=== PATIENT | male | born 1985 | race American Indian/Alaskan Native ===

== ENCOUNTER 2016-11-27 17:31 | Emergency (ER) | payer SELFPAY ==
[2016-11-27] MEDS ORDERED: Sodium Chloride 0.9% 2.5 ML Syringe FLUSH PRN (18:06)
[2016-11-27] MEDS ORDERED: Sodium Chloride 0.9% 10 ML Syringe FLUSH PRN (18:06)
[2016-11-27] MEDS ORDERED: Diphtheria,Pertussis(Acell),Tetanus Vaccine 0.5 ML Syringe IM ONE (18:06)
--- NOTE | 2016-11-27 18:18 | EDM.PDOC ---
ED HPI GENERAL MEDICAL PROBLEM - General Chief Complaint: Skin Complaint Stated Complaint: RIGHT LEG IS RED Time Seen by Provider: 11/27/16 18:08 Source of Information: Reports: Patient History Limitations: Reports: No Limitations - History of Present Illness INITIAL COMMENTS - FREE TEXT/NARRATIVE: HISTORY AND PHYSICAL: History of present illness: Patient is a 21-year-old male presents to the emergency room today with complaints of a infection to his right lower extremity. A shunt reports that approximately 5 days ago he noticed a localized area of redness to the right hart, approximate size of a $0.50 piece has progressively larger and larger. This morning he woke up noting the redness having golfed the entire right anterior aspect of hart with blistering around the ankle. Believes he may have had a fever with chills last night. Been ambulatory on it. States it feels better when he is able to rest and elevate the extremity. 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 He denies any recent exposure to those chemicals or any other allergens. Does have a moderate case of athlete's foot noted to the right , which she is using [id number] powder and creams. Patient denies any chest pain, shortness of breath, abdominal pain, nausea or vomiting. Denies any calf pain or tenderness with palpation or weight bearing. Review of systems: As per history of present illness and below otherwise all systems reviewed and negative. Past medical history: As per history of present illness and as reviewed below otherwise noncontributory. Surgical history: As per history of present illness and as reviewed below otherwise noncontributory. Social history: No reported history of drug or alcohol abuse. Family history: As per history of present illness and as reviewed below otherwise noncontributory. Physical exam: Gen.: Nontoxic appearing 21-year-old male. Well-developed, well-nourished. HEENT: Atraumatic, normocephalic, pupils reactive, negative for conjunctival pallor or scleral icterus, mucous membranes moist, throat clear, neck supple, nontender, trachea midline. Lungs: Clear to auscultation, breath sounds equal bilaterally, chest nontender. Heart: S1S2, regular rate and rhythm. No overt murmurs Abdomen: Soft, nondistended, nontender. Negative for costovertebral tenderness. Pelvis: Stable nontender. Genitourinary: Deferred. Rectal: Deferred. Skin: Area of cellulitis noted to the right lower extremity. Has defined borders of the anterior hart, starting below the patella and ending above the ankle. Is non-circumferential. Blistering noted to the medial and lateral ankle. Margins were outlined with a darker. Skin is warm to touch. Patient does have a case of athlete's foot which is odorous and covered an [id number] antifungal cream. Extremities: Atraumatic, negative for cords or calf pain. Neurovascular unremarkable. Neuro: Awake, alert, oriented. Cranial nerves II through XII unremarkable. Cerebellum unremarkable. Motor and sensory unremarkable throughout. Exam nonfocal. Diagnostics: CBC, CMP, lactic acid, ultrasound, x-ray of tib-fib Therapeutics: Vancomycin 1 g Impression: Cellulitis Vital signs are reviewed by me. Discussed admission with patient. 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 She declined admission regardless of risk versus benefits which were thoroughly explained. Educated patient on signs and symptoms to monitor over the next 24-48 hours. Patient voices understanding and assumes liabilty, will sign out AMA. A prescription for clindamycin and Bactrim DS were provided to patient. Our transverse of the cellulitis were lined with surgical pen. Patient states he will return if swelling redness exceeds those margins. Plan: 1. Take the antibiotics as prescribed. 2. Rest, ice, elevate the affected extremity as much as possible. 3. Follow-up with your primary care provider in the next 1-2 days. Return to the ED as needed as discussed. Definitive disposition and diagnosis as appropriate pending reevaluation and review of above. Onset: Other (5 days) Duration: Day(s): (5 days) Location: Reports: Lower Extremity, Right Right Leg Pain Score (Numeric/FACES): 5 - Related Data Allergies Allergy/AdvReac Type Severity Reaction Status Date / Time No Known Allergies Allergy Verified 11/27/16 17:49 Home Meds: Home Meds . [No Known Home Meds] 11/27/16 [History] Past Medical History HEENT History: Reports: None Cardiovascular History: Reports: None Respiratory History: Reports: None Gastrointestinal History: Reports: None Genitourinary History: Reports: None Musculoskeletal History: Reports: None Neurological History: Reports: None Psychiatric History: Reports: None Endocrine/Metabolic History: Reports: None Hematologic History: Reports: None Immunologic History: Reports: AIDS Oncologic (Cancer) History: Reports: None Dermatologic History: Reports: None - Infectious Disease History Infectious Disease History: Reports: None - Past Surgical History Head Surgeries/Procedures: Reports: None Cardiovascular Surgical History: Reports: None Male Surgical History: Reports: None Social & Family History - Tobacco Use Smoking Status *Q: Never Smoker Second Hand Smoke Exposure: No - Caffeine Use Caffeine Use: Reports: None - Recreational Drug Use Recreational Drug Use: No ED ROS GENERAL - Review of Systems Review Of Systems: ROS reveals no pertinent complaints other than HPI. ED EXAM, SKIN/RASH Exam: See Below (See dictation) Course - Vital Signs Last Recorded V/S: Last Vital Signs Temp 37.2 C 11/27/16 17:47 Pulse 122 H 11/27/16 20:29 Resp 20 11/27/16 20:29 BP 144/81 H 11/27/16 20:29 Pulse Ox 95 11/27/16 20:29 - Orders/Labs/Meds Orders: Active Orders 24 hr Category Date Time Status Vaccines to be Administered [RC] PER UNIT ROUTINE Care 11/27/16 18:08 Active Tibia Fibula Rt [CR] Stat Exams 11/27/16 18:06 Taken Venous Doppler Lwr Ext Rt [US] Stat Exams 11/27/16 18:06 Taken Sodium Chloride 0.9% [Normal Saline] 1,000 ml Med 11/27/16 18:20 Active IV STAT Sodium Chloride 0.9% [Saline Flush] Med 11/27/16 18:06 Active 10 ml FLUSH ASDIRECTED PRN Sodium Chloride 0.9% [Saline Flush] Med 11/27/16 18:06 Active 2.5 ml FLUSH ASDIRECTED PRN Saline Lock Insert [OM.PC] Stat Oth 11/27/16 18:05 Ordered Medication Orders Sodium Chloride (Normal Saline) 1,000 mls @ 150 mls/hr IV STAT ONE Stop: 11/28/16 00:59 Last Admin: 11/27/16 18:40 Dose: 150 mls/hr Sodium Chloride (Saline Flush) 10 ml FLUSH ASDIRECTED PRN PRN Reason: Keep Vein Open Last Admin: 11/27/16 18:46 Dose: 10 ml Sodium Chloride (Saline Flush) 2.5 ml FLUSH ASDIRECTED PRN PRN Reason: Keep Vein Open Last Admin: 11/27/16 18:47 Dose: 2.5 ml Labs: Laboratory Tests 11/27/16 11/27/16 11/27/16 Range/Units 18:45 18:45 18:45 WBC 16.52 H (4.0-11.0) K/uL RBC 5.24 (4.50-5.90) M/uL Hgb 15.3 (13.0-17.0) g/dL Hct 44.4 (38.0-50.0) % MCV 84.7 (80.0-98.0) fL MCH 29.2 (27.0-32.0) pg MCHC 34.5 (31.0-37.0) g/dL RDW Std Deviation 42.1 (28.0-62.0) fl RDW Coeff of Caden 14 (11.0-15.0) % Plt Count 196 (150-400) K/uL MPV 11.70 (7.40-12.00) fL Neut % (Auto) 91.5 H (48.0-80.0) % Lymph % (Auto) 3.1 L (16.0-40.0) % Mckinley % (Auto) 4.0 (0.0-15.0) % Eos % (Auto) 1.3 (0.0-7.0) % Baso % (Auto) 0.1 (0.0-1.5) % Neut # (Auto) 15.1 H (1.4-5.7) K/uL Lymph # (Auto) 0.5 L (0.6-2.4) K/uL Mckinley # (Auto) 0.7 (0.0-0.8) K/uL Eos # (Auto) 0.2 (0.0-0.7) K/uL Baso # (Auto) 0.0 (0.0-0.1) K/uL Nucleated RBC % 0.0 /100WBC Nucleated RBCs # 0 K/uL Lactate 1.0 (0.20-2.00) mmol/L Sodium 138 (136-146) mmol/L Potassium 3.8 (3.5-5.1) mmol/L Chloride 106 (98-110) mmol/L Carbon Dioxide 19 L (21-31) mmol/L BUN 18 (6.0-23.0) mg/dL Creatinine 1.5 (0.6-1.5) mg/dL Est Cr Clr Drug Dosing 79.76 mL/min Estimated GFR (MDRD) 55.3 ml/min Glucose 109 (60-110) mg/dL Calcium 9.7 (8.8-10.8) mg/dL Total Bilirubin 1.1 (0.1-1.5) mg/dL AST 35 (5-40) IU/L ALT 57 H (8-54) IU/L Alkaline Phosphatase 94 (40-150) Total Protein 7.9 (6.0-8.0) g/dL Albumin 4.3 (3.5-5.0) g/dL Globulin 3.6 H (2.0-3.5) g/dL Albumin/Globulin Ratio 1.2 L (1.3-2.8) Meds: Medications Generic Name Dose Route Start Last Admin Trade Name Freq PRN Reason Stop Dose Admin Sodium Chloride 1,000 mls @ 150 mls/hr 11/27/16 18:20 11/27/16 18:40 Normal Saline IV 11/28/16 00:59 150 mls/hr STAT ONE Administration Sodium Chloride 10 ml 11/27/16 18:06 11/27/16 18:46 Saline Flush FLUSH 10 ml ASDIRECTED PRN Administration Keep Vein Open Sodium Chloride 2.5 ml 11/27/16 18:06 11/27/16 18:47 Saline Flush FLUSH 2.5 ml ASDIRECTED PRN Administration Keep Vein Open Discontinued Medications Generic Name Dose Route Start Last Admin Trade Name Freq PRN Reason Stop Dose Admin Diphtheria/Tetanus/Acell Pertussis 0.5 ml 11/27/16 18:06 11/27/16 18:39 Adacel IM 11/27/16 18:07 0.5 ml .ONCE ONE Administration Vancomycin HCl 1 gm/ Sodium 250 mls @ 250 mls/hr 11/27/16 18:06 11/27/16 18: 40 Chloride IV 11/27/16 19:05 250 mls/hr ONETIME ONE Administration Departure - Departure Time of Disposition: 20:38 Disposition: Against Medical Advice 07 Clinical Impression: Cellulitis Qualifiers: Site of cellulitis: extremity Laterality: right - Discharge Information Referrals: PCP,None [Primary Care Provider] - Forms: ED Department Discharge Additional Instructions: The following information is given to patients seen in the emergency department who are being discharged to home. This information is to outline your options for follow-up care. We provide all patients seen in our emergency department with a follow-up referral. The need for follow-up, as well as the timing and circumstances, are variable depending upon the specifics of your emergency department visit. If you don't have a primary care physician on staff, we will provide you with a referral. We always advise you to contact your personal physician following an emergency department visit to inform them of the circumstance of the visit and for follow-up with them and/or the need for any referrals to a consulting specialist. The emergency department will also refer you to a specialist when appropriate. This referral assures that you have the opportunity for followup care with a specialist. All of these measure are taken in an effort to provide you with optimal care, which includes your followup. Under all circumstances we always encourage you to contact your private physician who remains a resource for coordinating your care. When calling for followup care, please make the office aware that this follow-up is from your recent emergency room visit. If for any reason you are refused follow-up, please contact the [facility] emergency department at and ask to speak to the emergency department charge nurse. [facility] Primary care- Internal Medicine and Family [address] [address] 1. Take the antibiotics as prescribed. 2. Rest, ice, elevate the affected extremity as often as possible. 3. Follow-up with your primary care provider in the next 1-2 days. Return to the ED as needed as discussed. - My Orders Last 24 Hours: My Active Orders 11/27/16 18:05 Saline Lock Insert [OM.PC] Stat 11/27/16 18:06 Tibia Fibula Rt [CR] Stat Venous Doppler Lwr Ext Rt [US] Stat Sodium Chloride 0.9% [Saline Flush] 10 ml FLUSH ASDIRECTED PRN Sodium Chloride 0.9% [Saline Flush] 2.5 ml FLUSH ASDIRECTED PRN 11/27/16 18:08 Vaccines to be Administered [RC] PER UNIT ROUTINE 11/27/16 18:20 Sodium Chloride 0.9% [Normal Saline] 1,000 ml IV STAT - Assessment/Plan Last 24 Hours: My Active Orders 11/27/16 18:05 Saline Lock Insert [OM.PC] Stat 11/27/16 18:06 Tibia Fibula Rt [CR] Stat Venous Doppler Lwr Ext Rt [US] Stat Sodium Chloride 0.9% [Saline Flush] 10 ml FLUSH ASDIRECTED PRN Sodium Chloride 0.9% [Saline Flush] 2.5 ml FLUSH ASDIRECTED PRN 11/27/16 18:08 Vaccines to be Administered [RC] PER UNIT ROUTINE 11/27/16 18:20 Sodium Chloride 0.9% [Normal Saline] 1,000 ml IV STAT
[2016-11-27] MEDS ORDERED: Sodium Chloride 0.9% 1,000 ML IV ONE (18:20)
[2016-11-28 01:12] VITALS: BP 141/80
--- NOTE | 2016-11-29 17:22 | CR ---
EXAM DATE: 11/27/16 PATIENT'S AGE: 31 Patient: FREDIS BURGESS Facility: [place], [place] Site . Site : 08/20/1995 Study: XRay Extremity Right tib/fib [id number]/3/2017 6:38:49 PM Ordering Physician: Doctor Alarcon Final Report: HISTORY: Cellulitis. TECHNIQUE: Two views of the right tibia and fibula. COMPARISON: No prior. FINDINGS: No acute fracture. No bony destructive change. No soft tissue gas or radiopaque foreign body. IMPRESSION: 1. No acute fracture or bony destructive change. 2. No soft tissue gas. Dictated by Mo Chiang MD @ 11/27/2016 7:05:22 PM Dictated by: Mo Chiang MD @ 11/27/2016 19:05:43 (Electronic Signature) Report Signed by Proxy. YEFRI
--- NOTE | 2016-11-29 17:23 | US ---
EXAM DATE: 11/27/16 PATIENT'S AGE: 31 Patient: FREDIS BURGESS Facility: [place], [place] Site . Site : 1985 Study: US Extremity Venous RT [id number]/3/2017 8:06:34 PM Ordering Physician: Doctor Alarcon Final Report: INDICATION: CELLULITIS RT LOWER LEG TECHNIQUE: Ultrasound venous duplex right lower extremity. COMPARISON: None. FINDINGS: The right common femoral, superficial femoral, deep femoral, popliteal, posterior tibial, and greater saphenous veins are fully compressible with normal waveforms. The contralateral left common femoral artery is fully compressible with normal waveform. No masses evident. IMPRESSION: Normal ultrasound of the right lower extremity veins. Dictated by: Garland Rose MD @ 11/27/2016 20:26:11 (Electronic Signature) Report Signed by Proxy. [email or web address]
== END 2016-11-27 20:56 | disposition left against medical advice (07) ==
LOC: MW.ED 17:31 → EDBD 17:31 → MW.ED 20:56
DX: S90.512A Abrasion, left ankle, initial encounter (principal); L03.115 Cellulitis of right lower limb; Z23 Encounter for immunization; X12.XXXA Contact with other hot fluids, initial encounter
CPT/HCPCS: 36415; 73590; 80053; 83605; 85025; 90471; 90715; 93971; 96361; 96365; 99284; J3370; J7040; J7050; 99283

== ENCOUNTER 2016-11-29 22:13 | Inpatient (IN) | payer SELFPAY ==
[2016-11-29] MEDS ORDERED: cefTRIAXone 1 GM in Premix Bag 1 BAG IV ONE (22:31)
--- NOTE | 2016-11-29 22:48 | EDM.PDOC ---
ED HPI GENERAL MEDICAL PROBLEM - General Chief Complaint: Lower Extremity Injury/Pain Stated Complaint: RIGHT LEG SWOLLEN BATRICAL INFECTION Time Seen by Provider: 11/29/16 22:48 - History of Present Illness INITIAL COMMENTS - FREE TEXT/NARRATIVE: HISTORY AND PHYSICAL: History of present illness: Patient 31-year-old male presents with a concern of redness pain and swelling to his right leg this has worsened over the last several days and he was seen in the emergency department yesterday and signed out AGAINST MEDICAL ADVICE he' s had increased pain redness and swelling since he does not recall any specific trauma but states last Monday he was crawling around and seems to develop since that Review of systems: As per history of present illness and below otherwise all systems reviewed and negative. Past medical history: As per history of present illness and as reviewed below otherwise noncontributory. Surgical history: As per history of present illness and as reviewed below otherwise noncontributory. Social history: No reported history of drug or alcohol abuse. Family history: As per history of present illness and as reviewed below otherwise noncontributory. Physical exam: HEENT: Atraumatic, normocephalic, pupils reactive, negative for conjunctival pallor or scleral icterus, mucous membranes moist, throat clear, neck supple, nontender, trachea midline. Lungs: Clear to auscultation, breath sounds equal bilaterally, chest nontender. Heart: S1S2, regular, negative for clicks, rubs, or JVD. Abdomen: Soft, nondistended, nontender. Negative for masses or hepatosplenomegaly. Negative for costovertebral tenderness. Pelvis: Stable nontender. Genitourinary: Deferred. Rectal: Deferred. Extremities: Patient has large erythema with warmth tenderness and blistering noted to his right leg CMS neurovascular exams unremarkable Neuro: Awake, alert, oriented. Cranial nerves II through XII unremarkable. Cerebellum unremarkable. Motor and sensory unremarkable throughout. Exam nonfocal. Diagnostics: CBC CMP lactic acid blood culture 2 x-ray tib-fib Therapeutics: Normal saline at 125 mL an hour vancomycin 1 g IV Impression: #1 cellulitis right leg Definitive disposition and diagnosis as appropriate pending reevaluation and review of above. Right Lower Leg Pain Score (Numeric/FACES): 5 - Related Data Allergies Allergy/AdvReac Type Severity Reaction Status Date / Time No Known Allergies Allergy Verified 11/29/16 22:25 Home Meds: Home Meds Amoxicillin/Potassium Clav [Augmentin 500-125 Tablet] 0 mg PO DAILY 11/29/16 [ History] Clindamycin HCl 0 mg PO DAILY 11/29/16 [History] Past Medical History - Past Health History Medical/Surgical History: Denies Medical/Surgical History HEENT History: Reports: None Cardiovascular History: Reports: None Respiratory History: Reports: None Gastrointestinal History: Reports: None Genitourinary History: Reports: None Musculoskeletal History: Reports: None Neurological History: Reports: None Psychiatric History: Reports: None Endocrine/Metabolic History: Reports: None Hematologic History: Reports: None Immunologic History: Reports: AIDS Oncologic (Cancer) History: Reports: None Dermatologic History: Reports: None - Infectious Disease History Infectious Disease History: Reports: None - Past Surgical History Head Surgeries/Procedures: Reports: None Cardiovascular Surgical History: Reports: None Male Surgical History: Reports: None Social & Family History - Family History Family Medical History: Noncontributory - Tobacco Use Smoking Status *Q: Never Smoker Second Hand Smoke Exposure: No - Caffeine Use Caffeine Use: Reports: None - Recreational Drug Use Recreational Drug Use: No Review of Systems - Review of Systems Review Of Systems: ROS reveals no pertinent complaints other than HPI. ED EXAM, GENERAL - Physical Exam Exam: See Below (See dictation) Course - Vital Signs Last Recorded V/S: Last Vital Signs Temp 36.6 C 11/29/16 22:27 Pulse 116 H 11/29/16 22:27 Resp 18 11/29/16 22:27 BP 146/93 H 11/29/16 22:27 Pulse Ox 96 11/29/16 22:27 - Orders/Labs/Meds Orders: Active Orders 24 hr Category Date Time Status Tibia Fibula Rt [CR] Stat Exams 11/29/16 22:33 Ordered CBC WITH AUTO DIFF [HEME] Stat Lab 11/29/16 22:31 Ordered COMPREHENSIVE METABOLIC PN,CMP [CHEM] Stat Lab 11/29/16 22:31 Ordered CULTURE BLOOD [BC] Stat Lab 11/29/16 22:31 Ordered CULTURE BLOOD [BC] Stat Lab 11/29/16 22:31 Ordered LACTIC ACID,WHOLE BLOOD [BG] Stat Lab 11/29/16 22:31 Ordered Sodium Chloride 0.9% [Normal Saline] 1,000 ml Med 11/29/16 22:45 Active IV ASDIRECTED cefTRIAXone [Rocephin in Dextrose,Iso-Osm 1 GM/50 ML] 1 Med 11/29/16 22:31 Active gm Premix Bag 1 bag IV ONETIME Blood Culture x2 Reflex Set [OM.PC] Stat Oth 11/29/16 22:31 Ordered Medication Orders Ceftriaxone Sodium/Dextrose 1 (gm/ Premix) 50 mls @ 100 mls/hr IV ONETIME ONE Stop: 11/29/16 23:00 Sodium Chloride (Normal Saline) 1,000 mls @ 125 mls/hr IV ASDIRECTED [facility] Meds: Medications Generic Name Dose Route Start Last Admin Trade Name Freq PRN Reason Stop Dose Admin Ceftriaxone Sodium/Dextrose 1 50 mls @ 100 mls/hr 11/29/16 22:31 gm/ Premix IV 11/29/16 23:00 ONETIME ONE Sodium Chloride 1,000 mls @ 125 mls/hr 11/29/16 22:45 Normal Saline IV ASDIRECTED BORDY Departure - Departure Time of Disposition: 22:47 Disposition: Admitted As Inpatient 68 Condition: Good Clinical Impression: Cellulitis - Discharge Information Referrals: PCP,None [Primary Care Provider] - - My Orders Last 24 Hours: My Active Orders 11/29/16 22:31 CBC WITH AUTO DIFF [HEME] Stat COMPREHENSIVE METABOLIC PN,CMP [CHEM] Stat CULTURE BLOOD [BC] Stat CULTURE BLOOD [BC] Stat LACTIC ACID,WHOLE BLOOD [BG] Stat cefTRIAXone [Rocephin in Dextrose,Iso-Osm 1 GM/50 ML] 1 gm Premix Bag 1 bag IV ONETIME Blood Culture x2 Reflex Set [OM.PC] Stat 11/29/16 22:33 Tibia Fibula Rt [CR] Stat 11/29/16 22:45 Sodium Chloride 0.9% [Normal Saline] 1,000 ml IV ASDIRECTED - Assessment/Plan Last 24 Hours: My Active Orders 11/29/16 22:31 CBC WITH AUTO DIFF [HEME] Stat COMPREHENSIVE METABOLIC PN,CMP [CHEM] Stat CULTURE BLOOD [BC] Stat CULTURE BLOOD [BC] Stat LACTIC ACID,WHOLE BLOOD [BG] Stat cefTRIAXone [Rocephin in Dextrose,Iso-Osm 1 GM/50 ML] 1 gm Premix Bag 1 bag IV ONETIME Blood Culture x2 Reflex Set [OM.PC] Stat 11/29/16 22:33 Tibia Fibula Rt [CR] Stat 11/29/16 22:45 Sodium Chloride 0.9% [Normal Saline] 1,000 ml IV ASDIRECTED
[2016-11-29] MEDS: Sodium Chloride 0.9% 1,000 ML IV SCH (22:49)
--- NOTE | 2016-11-30 00:06 | PCM.HP ---
H&P History of Present Illness - General Date of Service: 11/29/16 - History of Present Illness Initial Comments - Free Text/Narative: 31 yo male who presents with right lower leg erythema and edema. He reports developing a rash two days ago on his right hart which he thought was due to rubbing against velcro on his work cloths. He was seen in the ED and presribed augmentin and clindamycin. He returns to ED today reporting the erythema and edema of his legs have not changed. He does report some pain on the surface of the skin. There have been blisters that have developed on the edge of the rash. Right Lower Leg Pain Score (Numeric/FACES): 2 - Related Data Allergies/Adverse Reactions: Allergies Allergy/AdvReac Type Severity Reaction Status Date / Time No Known Allergies Allergy Verified 11/29/16 22:25 Home Medications: Home Meds Amoxicillin/Potassium Clav [Augmentin 500-125 Tablet] 0 mg PO DAILY 11/29/16 [ History] Clindamycin HCl 0 mg PO DAILY 11/29/16 [History] Past Medical History - Past Health History Medical/Surgical History: Denies Medical/Surgical History HEENT History: Reports: None Cardiovascular History: Reports: None Respiratory History: Reports: None Gastrointestinal History: Reports: None Genitourinary History: Reports: None Musculoskeletal History: Reports: None Neurological History: Reports: None Psychiatric History: Reports: None Endocrine/Metabolic History: Reports: None Hematologic History: Reports: None Immunologic History: Reports: AIDS Oncologic (Cancer) History: Reports: None Dermatologic History: Reports: None - Infectious Disease History Infectious Disease History: Reports: None - Past Surgical History Head Surgeries/Procedures: Reports: None Cardiovascular Surgical History: Reports: None Male Surgical History: Reports: None Social & Family History - Family History Family Medical History: Noncontributory - Tobacco Use Smoking Status *Q: Never Smoker Second Hand Smoke Exposure: No - Caffeine Use Caffeine Use: Reports: None - Recreational Drug Use Recreational Drug Use: No H&P Review of Systems - Review of Systems: Review Of Systems: ROS reveals no pertinent complaints other than HPI. Exam - Exam Exam: See Below - Vital Signs Vital Signs: Last Vital Signs Temp 36.6 C 11/29/16 22:27 Pulse 103 H 11/29/16 23:38 Resp 17 11/29/16 23:38 BP 134/70 11/29/16 23:38 Pulse Ox 97 11/29/16 23:38 Weight: 100.9 kg - Exam General: Alert, Oriented, 4 Lungs: Clear to Auscultation, Normal Respiratory Effort Cardiovascular: Regular Rate, Regular Rhythm GI/Abdominal Exam: Normal Bowel Sounds, Non-Tender, No Organomegaly, No Distention Extremities: Normal Range of Motion, Other (large erythematous rash of anterior lower leg extending below knee to above ankle, will several 2-3cm blisters, full range of motion of ankle and knee). No: Joint Swelling - Patient Data Result Diagrams: 11/30/16 04:42 11/30/16 04:42 *Q Meaningful Use (ADM) - VTE *Q VTE Criteria *Q: - Stroke *Q Stroke Criteria *Q: - AMI *Q AMI Criteria *Q: Problem List Initiated/Reviewed/Updated: Yes Orders Last 24hrs: Medication Orders Sodium Chloride (Normal Saline) 1,000 mls @ 125 mls/hr IV ASDIRECTED BRODY Last Admin: 11/29/16 22:49 Dose: 125 mls/hr Assessment/Plan Comment:: 31 yo male admitted for right leg cellulitis. Treating with vancomycin and zosyn
[2016-11-30] MEDS ORDERED: oxyCODONE 5 MG Tab PO PRN (00:11)
[2016-11-30] MEDS ORDERED: Morphine 2 MG/ML Syringe IVPUSH PRN (00:11)
[2016-11-30] MEDS ORDERED: Ondansetron 4 MG/2 ML SDV IVPUSH PRN (00:11)
[2016-11-30] MEDS: Piperacillin/Tazobactam 3.375 GM in Sodium Chloride 0.9% 50 ML IV SCH ×4 (00:47→18:09)
[2016-11-30] MEDS ORDERED: Flu Vaccine 2016-17(36Mos+)/PF 60 MCG/0.5 ML Syringe IM ONE (01:30)
[2016-11-30] MEDS: Vancomycin 1.5 GM in Sodium Chloride 0.9% 500 ML IV SCH ×4 (02:04→16:31)
[2016-11-30 05:32] LABS: CHLORIDE,CL 105 mmol/L (98-110); SODIUM,NA 138 mmol/L (136-146)
[2016-11-30] MEDS: Enoxaparin 40 MG/0.4 ML Syringe SUBCUT SCH (09:26)
[2016-11-30] MEDS: Acetaminophen 325 MG Tab PO PRN ×2 (09:38→16:29)
[2016-11-30] MEDS: Sodium Chloride 0.9% 1,000 ML IV SCH ×2 (11:14→21:52)
--- NOTE | 2016-11-30 11:14 | PCM.PN ---
- Review of Systems Systems Review Comment:: patient reports pain has improved, beleives edema and redness has improved - Patient Data Vitals - Most Recent: Last Vital Signs Temp 37.9 C 11/30/16 08:00 Pulse 71 11/30/16 08:00 Resp 19 11/30/16 08:00 BP 141/78 H 11/30/16 08:00 Pulse Ox 95 11/30/16 08:00 Weight - Most Recent: 100.9 kg I&O - Last 24 Hours: Intake & Output 11/29/16 11/30/16 11/30/16 22:59 06:59 14:59 Intake Total 150 Output Total 420 Balance -270 Lab Results Last 24 Hours: Laboratory Results - last 24 hr 11/30/16 11/30/16 Range/Units 04:42 04:42 WBC 16.85 H (4.0-11.0) K/uL RBC 4.59 (4.50-5.90) M/uL Hgb 13.2 (13.0-17.0) g/dL Hct 38.5 (38.0-50.0) % MCV 83.9 (80.0-98.0) fL MCH 28.8 (27.0-32.0) pg MCHC 34.3 (31.0-37.0) g/dL RDW Std Deviation 42.2 (28.0-62.0) fl RDW Coeff of Caden 14 (11.0-15.0) % Plt Count 211 (150-400) K/uL MPV 11.60 (7.40-12.00) fL Neut % (Auto) 83.1 H (48.0-80.0) % Lymph % (Auto) 7.4 L (16.0-40.0) % [place] % (Auto) 4.8 (0.0-15.0) % Eos % (Auto) 4.6 (0.0-7.0) % Baso % (Auto) 0.1 (0.0-1.5) % Neut # (Auto) 14.0 H (1.4-5.7) K/uL Lymph # (Auto) 1.2 (0.6-2.4) K/uL Wythe # (Auto) 0.8 (0.0-0.8) K/uL Eos # (Auto) 0.8 H (0.0-0.7) K/uL Baso # (Auto) 0.0 (0.0-0.1) K/uL Nucleated RBC % 0.0 /100WBC Nucleated RBCs # 0 K/uL Sodium 138 (136-146) mmol/L Potassium 3.8 (3.5-5.1) mmol/L Chloride 105 (98-110) mmol/L Carbon Dioxide 24 (21-31) mmol/L BUN 13 (6.0-23.0) mg/dL Creatinine 1.2 (0.6-1.5) mg/dL Est Cr Clr Drug Dosing 99.69 mL/min Estimated GFR (MDRD) > 60.0 ml/min Glucose 117 H (60-110) mg/dL Calcium 8.5 L (8.8-10.8) mg/dL Med Orders - Current: Current Medications Acetaminophen (Tylenol) 650 mg PO Q4H PRN PRN Reason: Pain (Mild 1-3)/fever Last Admin: 11/30/16 09:38 Dose: 650 mg Enoxaparin Sodium (Lovenox) 40 mg SUBCUT DAILY [facility] Last Admin: 11/30/16 09:26 Dose: 40 mg Sodium Chloride (Normal Saline) 1,000 mls @ 125 mls/hr IV ASDIRECTED [facility] Last Admin: 11/29/16 22:49 Dose: 125 mls/hr Piperacillin Sod/Tazobactam (Sod 3.375 gm/ Sodium Chloride) 50 mls @ 100 mls/ hr IV Q6H [facility] Last Admin: 11/30/16 06:21 Dose: 100 mls/hr Vancomycin HCl 1.5 gm/ Sodium (Chloride) 500 mls @ 333.333 mls/hr IV Q8H [facility] Last Admin: 11/30/16 09:25 Dose: 333.333 mls/hr Morphine Sulfate (Morphine) 2 mg IVPUSH Q2H PRN PRN Reason: Pain (severe 7-10) Ondansetron HCl (Zofran) 4 mg IVPUSH Q4H PRN PRN Reason: Nausea Oxycodone HCl (Oxycodone) 5 mg PO Q4H PRN PRN Reason: Pain (moderate 4-6) Vancomycin HCl (Pharmacy To Dose - Vancomycin) 1 dose .XX ASDIRECTED [facility] Discontinued Medications Ceftriaxone Sodium/Dextrose 1 (gm/ Premix) 50 mls @ 100 mls/hr IV ONETIME ONE Stop: 11/29/16 23:00 Last Admin: 11/29/16 22:50 Dose: 100 mls/hr - Exam General: Alert, Oriented Lungs: Clear to Auscultation, Normal Respiratory Effort Extremities: Normal Capillary Refill, Other (no noticable changes in edema and erthyma of right lower leg rash, no drainage or area of fluctuance, full range of motion of ankle, knee and toes) Neurological: No New Focal Deficit - Problem List Review Problem List Initiated/Reviewed/Updated: Yes - My Orders Last 24 Hours: My Active Orders 11/30/16 00:10 Oxygen Therapy [RC] PRN Vital Signs [RC] Q4H Resuscitation Status Routine 11/30/16 00:11 Oxygen Therapy [RC] PRN Up ad Nydia [RC] ASDIRECTED Acetaminophen [Tylenol] 650 mg PO Q4H PRN Morphine 2 mg IVPUSH Q2H PRN Ondansetron [Zofran] 4 mg IVPUSH Q4H PRN oxyCODONE 5 mg PO Q4H PRN 11/30/16 00:15 Vancomycin Pharmacy to Dose [Pharmacy to Dose - Vancomycin] 1 dose .XX ASDIRECTED 11/30/16 00:30 Piperacillin/Tazobactam [Piperacil-Tazobact] 3.375 gm Sodium Chloride 0.9% [ Normal Saline] 50 ml IV Q6H 11/30/16 01:30 Vancomycin 1.5 gm Sodium Chloride 0.9% [Normal Saline] 500 ml IV Q8H 11/30/16 09:00 Enoxaparin [Lovenox] 40 mg SUBCUT DAILY 11/30/16 Breakfast Regular Diet [DIET] 12/01/16 05:11 BASIC METABOLIC PANEL,BMP [CHEM] AM CBC WITH AUTO DIFF [HEME] AM 12/02/16 05:11 BASIC METABOLIC PANEL,BMP [CHEM] AM CBC WITH AUTO DIFF [HEME] AM - Plan Plan:: 31 yo male admitted for right leg cellulitis. We will continue IV vancomycin and zosyn
--- NOTE | 2016-11-30 16:06 | CR ---
EXAM DATE: 11/30/16 PATIENT'S AGE: 31 Patient: FREDIS BURGESS Facility: [place], [place] Site . Site : [id number] Study: XRay Extremity Right TIB FIB [id number] 11:21:18 PM Ordering Physician: Doctor Alarcon Final Report: Indication: Swelling, cellulitis Technique: Four views of the right tibia and fibula Comparison: 11/27/2016 Findings: Bones: Alignment is normal. No fractures or bone lesions. Joint spaces: Unremarkable. Soft tissues: Soft tissue swelling. Multiple ovoid cutaneous lesions, increased in number and size compared to the prior. Impression: No acute osseous abnormality seen. Soft tissue swelling. Multiple ovoid cutaneous lesions, increased in number and size compared to the prior study, which could represent increasing and enlarging cutaneous blisters. Correlate with physical exam. Dictated by Tristen Malhotra MD @ 11/29/2016 11:25:56 PM Dictated by: Tristen Malhotra MD @ 11/29/2016 23:26:01 (Electronic Signature) Report Signed by Proxy. YEFRI
[2016-12-01] MEDS: Piperacillin/Tazobactam 3.375 GM in Sodium Chloride 0.9% 50 ML IV SCH ×4 (00:44→19:27)
[2016-12-01] MEDS: Vancomycin 1.5 GM in Sodium Chloride 0.9% 500 ML IV SCH ×3 (01:52→17:19)
[2016-12-01 05:17] LABS: CHLORIDE,CL 111 mmol/L (98-110); SODIUM,NA 141 mmol/L (136-146)
--- NOTE | 2016-12-01 08:06 | PCM.PN ---
- General Info Date of Service: 12/01/16 Admission Dx/Problem (Free Text): Cellulitis Subjective Update: Reports he feels pain is improving, feels the redness is improving as well. blisters remain intact. No chest pain or palpitations. Did have fever last night. None since. Functional Status: Reports: Pain Controlled, Tolerating Diet, Ambulating, Urinating - Review of Systems General: Reports: No Symptoms, Fever. Denies: Malaise HEENT: Reports: No Symptoms. Denies: Sore Throat, Visual Changes Pulmonary: Reports: No Symptoms. Denies: Shortness of Breath Cardiovascular: Reports: No Symptoms. Denies: Chest Pain, Palpitations Gastrointestinal: Reports: No Symptoms. Denies: Abdominal Pain, Nausea, Vomiting Musculoskeletal: Reports: No Symptoms. Denies: Neck Pain Skin: Reports: Other (erythema and swelling improving to R lower leg) Neurological: Reports: No Symptoms Psychiatric: Reports: No Symptoms - Patient Data Vitals - Most Recent: Last Vital Signs Temp 99 F 12/01/16 04:00 Pulse 87 12/01/16 04:00 Resp 16 12/01/16 04:00 BP 151/79 H 12/01/16 04:00 Pulse Ox 97 12/01/16 04:00 Weight - Most Recent: 100.9 kg I&O - Last 24 Hours: Intake & Output 11/30/16 12/01/16 12/01/16 22:59 06:59 14:59 Intake Total 2380 2091 Output Total 1200 2190 Balance 1180 -99 Lab Results Last 24 Hours: Laboratory Results - last 24 hr 12/01/16 12/01/16 Range/Units 04:42 04:42 WBC 14.79 H (4.0-11.0) K/uL RBC 4.32 L (4.50-5.90) M/uL Hgb 12.4 L (13.0-17.0) g/dL Hct 36.6 L (38.0-50.0) % MCV 84.7 (80.0-98.0) fL MCH 28.7 (27.0-32.0) pg MCHC 33.9 (31.0-37.0) g/dL RDW Std Deviation 42.3 (28.0-62.0) fl RDW Coeff of Caden 14 (11.0-15.0) % Plt Count 248 (150-400) K/uL MPV 11.40 (7.40-12.00) fL Add Manual Diff YES Neutrophils % (Manual) 78 (48.0-80.0) % Band Neutrophils % 5 % Lymphocytes % (Manual) 5 L (16.0-40.0) % Monocytes % (Manual) 6 (0.0-15.0) % Eosinophils % (Manual) 6 (0.0-7.0) % Nucleated RBC % 0.0 /100WBC Absolute Seg Neuts 11.5 Band Neutrophils # 0.7 Lymphocytes # (Manual) 0.7 Monocytes # (Manual) 0.9 Eosinophils # (Manual) 0.9 Nucleated RBCs # 0 K/uL Sodium 141 (136-146) mmol/L Potassium 3.7 (3.5-5.1) mmol/L Chloride 111 H (98-110) mmol/L Carbon Dioxide 24 (21-31) mmol/L BUN 6 (6.0-23.0) mg/dL Creatinine 1.0 (0.6-1.5) mg/dL Est Cr Clr Drug Dosing 119.63 mL/min Estimated GFR (MDRD) > 60.0 ml/min Glucose 173 H (60-110) mg/dL Calcium 8.1 L (8.8-10.8) mg/dL Med Orders - Current: Current Medications Acetaminophen (Tylenol) 650 mg PO Q4H PRN PRN Reason: Pain (Mild 1-3)/fever Last Admin: 11/30/16 16:29 Dose: 650 mg Enoxaparin Sodium (Lovenox) 40 mg SUBCUT DAILY [facility] Last Admin: 11/30/16 09:26 Dose: 40 mg Sodium Chloride (Normal Saline) 1,000 mls @ 125 mls/hr IV ASDIRECTED [facility] Last Admin: 11/30/16 21:52 Dose: 125 mls/hr Piperacillin Sod/Tazobactam (Sod 3.375 gm/ Sodium Chloride) 50 mls @ 100 mls/ hr IV Q6H [facility] Last Admin: 12/01/16 05:39 Dose: 100 mls/hr Vancomycin HCl 1.5 gm/ Sodium (Chloride) 500 mls @ 333.333 mls/hr IV Q8H [facility] Last Admin: 12/01/16 01:52 Dose: 333.333 mls/hr Morphine Sulfate (Morphine) 2 mg IVPUSH Q2H PRN PRN Reason: Pain (severe 7-10) Ondansetron HCl (Zofran) 4 mg IVPUSH Q4H PRN PRN Reason: Nausea Last Admin: 11/30/16 11:53 Dose: 4 mg Oxycodone HCl (Oxycodone) 5 mg PO Q4H PRN PRN Reason: Pain (moderate 4-6) Vancomycin HCl (Pharmacy To Dose - Vancomycin) 1 dose .XX ASDIRECTED [facility] Discontinued Medications Ceftriaxone Sodium/Dextrose 1 (gm/ Premix) 50 mls @ 100 mls/hr IV ONETIME ONE Stop: 11/29/16 23:00 Last Admin: 11/29/16 22:50 Dose: 100 mls/hr - Exam General: Alert, Oriented, Cooperative, No Acute Distress Neck: Supple Lungs: Clear to Auscultation, Normal Respiratory Effort Cardiovascular: Regular Rate, Regular Rhythm Extremities: Normal Range of Motion Wound/Incisions: Erythema Improving (Slight improvement to erythem to R lower leg, less bright red in appearance. Has multiple large blisters, all intact with serous fluid within. Redness also extends medially to thigh, but the brightness of this has improved as well. No areas or fluctuance, no pain with knee joint movement, ankle or toe movement. ) Neurological: No New Focal Deficit Psy/Mental Status: Alert, Normal Affect, Normal Mood - Problem List & Annotations (1) Cellulitis SNOMED Code(s): 877677377 Code(s): L03.90 - CELLULITIS, UNSPECIFIED Status: Acute Current Visit: Yes Qualifiers: Site of cellulitis: extremity Site of cellulitis of extremity: lower extremity Laterality: right Qualified Code(s): L03.115 - Cellulitis of right lower limb - Problem List Review Problem List Initiated/Reviewed/Updated: Yes - Plan Plan:: 31 yo male admitted for right leg cellulitis. 1. Cellulitis: Continue IV Vancomycin and Zosyn, leukocytosis improving slowly. BC negative x 1 day. Encouraged to keep leg elevated and not to disturb blisters. Febrile last evening, will continue to monitor. Will consult general surgery, Dr. Diaz to see today. VTE prophylaxis: Lovenox. Dispo: 2-4 days, pending improvement.
[2016-12-01] MEDS: Sodium Chloride 0.9% 1,000 ML IV SCH (08:43)
[2016-12-01] MEDS: Enoxaparin 40 MG/0.4 ML Syringe SUBCUT SCH (09:04)
[2016-12-01] MEDS: Acetaminophen 325 MG Tab PO PRN (09:05)
[2016-12-01] MEDS: Pantoprazole 40 MG in Sodium Chloride 0.9% 10 ML IVPUSH SCH (11:08)
--- NOTE | 2016-12-01 17:40 | PCM.CONS ---
H&P History of Present Illness - General Date of Service: 12/01/16 Admit Problem/Dx: Cellulitis Source of Information: Patient History Limitations: Reports: No Limitations - History of Present Illness Initial Comments - Free Text/Narative: 31-year-old gentleman admitted on November 29 with cellulitis of his right leg. He relates that 2 or 3 days before that. He did have some minor trauma to his right leg. This happened while he was at work. 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 The leg became progressively swollen. He did present to the emergency room on November 28, but declined admission. He returned on the and was admitted to the hospital with a diagnosis of cellulitis of his right lower extremity. He has been on parenteral antibiotics since admission. He does have significant swelling of the right lower extremity, especially below the knee with blistering of the skin. Initial WBC was 17K and it has gradually decreased. Symptom Onset Date: 11/26/16 Location: Reports: Lower Extremity, Right Quality: Reports: Ache, Pressure Severity: Severe Improves with: Reports: Rest Worsens with: Reports: Movement Associated Symptoms: Reports: No Other Symptoms Right Lower Leg Pain Score (Numeric/FACES): 7 - Related Data Allergies/Adverse Reactions: Allergies Allergy/AdvReac Type Severity Reaction Status Date / Time No Known Allergies Allergy Verified 11/29/16 22:25 Home Medications: Home Meds Amoxicillin/Potassium Clav [Augmentin 500-125 Tablet] 0 mg PO DAILY 11/29/16 [ History] Clindamycin HCl 0 mg PO DAILY 11/29/16 [History] Past Medical History - Past Health History Medical/Surgical History: Denies Medical/Surgical History HEENT History: Reports: None Cardiovascular History: Reports: None Respiratory History: Reports: None Gastrointestinal History: Reports: None Genitourinary History: Reports: None Musculoskeletal History: Reports: None Neurological History: Reports: None Psychiatric History: Reports: None Endocrine/Metabolic History: Reports: None Hematologic History: Reports: None Immunologic History: Reports: AIDS Oncologic (Cancer) History: Reports: None Dermatologic History: Reports: None - Infectious Disease History Infectious Disease History: Reports: None - Past Surgical History Head Surgeries/Procedures: Reports: None Cardiovascular Surgical History: Reports: None Male Surgical History: Reports: None Social & Family History - Family History Family Medical History: Noncontributory - Tobacco Use Smoking Status *Q: Never Smoker Years of Tobacco use: 11 Packs/Tins Daily: 0.2 Used Tobacco, but Quit: No Second Hand Smoke Exposure: No - Caffeine Use Caffeine Use: Reports: None - Alcohol Use Date of Last Drink: 11/23/16 Time of Last Drink: 21:00 - Recreational Drug Use Recreational Drug Use: No H&P Review of Systems - Review of Systems: Review Of Systems: See Below General: Denies: Fever, Chills, Malaise, Weakness, Fatigue HEENT: Reports: No Symptoms Pulmonary: Reports: No Symptoms Cardiovascular: Reports: No Symptoms Gastrointestinal: Reports: No Symptoms Genitourinary: Reports: No Symptoms Musculoskeletal: Reports: Leg Pain (Right) Skin: Reports: Erythema, Other (blisters on right lower leg). Denies: Cyanosis , Jaundice, Mottled, Pallor, Diaphoresis Psychiatric: Reports: No Symptoms Neurological: Reports: No Symptoms Hematologic/Lymphatic: Reports: No Symptoms Immunologic: Reports: No Symptoms Exam - Exam Exam: See Below - Vital Signs Vital Signs: Last Vital Signs Temp 97.6 F 12/01/16 16:00 Pulse 82 12/01/16 16:00 Resp 22 H 12/01/16 16:00 BP 155/90 H 12/01/16 16:00 Pulse Ox 95 12/01/16 16:00 Weight: 222 lb 7.143 oz - Exam General: Alert, Oriented, Cooperative HEENT: Conjunctiva Clear, Pupils Equal, Pupils Reactive Neck: Supple, Trachea Midline Lungs: Clear to Auscultation, Normal Respiratory Effort Cardiovascular: Regular Rate, Regular Rhythm. No: Tachycardia GI/Abdominal Exam: Normal Bowel Sounds, Soft, Non-Tender (Male) Exam: Deferred Rectal (Males) Exam: Deferred Back Exam: Normal Inspection Extremities: Pedal Edema (Right leg only), Leg Pain (Right), Increased Warmth ( Right), Redness (Right), Other (Right leg is markedly swollen compared to the left. No tenderness or fluctuation to palpation.). No: Rodney's Sign Skin: Warm, Dry, Other (blisters on right lower extremity below the knee) Neuro Extensive - Mental Status: Alert, Oriented x3, Normal Mood/Affect Psychiatric: Alert, Normal Affect, Normal Mood - Patient Data Lab Results Last 24 hrs: Laboratory Results - last 24 hr 12/01/16 12/01/16 12/01/16 Range/Units 04:42 04:42 09:24 WBC 14.79 H (4.0-11.0) K/uL RBC 4.32 L (4.50-5.90) M/uL Hgb 12.4 L (13.0-17.0) g/dL Hct 36.6 L (38.0-50.0) % MCV 84.7 (80.0-98.0) fL MCH 28.7 (27.0-32.0) pg MCHC 33.9 (31.0-37.0) g/dL RDW Std Deviation 42.3 (28.0-62.0) fl RDW Coeff of Caden 14 (11.0-15.0) % Plt Count 248 (150-400) K/uL MPV 11.40 (7.40-12.00) fL Add Manual Diff YES Neutrophils % (Manual) 78 (48.0-80.0) % Band Neutrophils % 5 % Lymphocytes % (Manual) 5 L (16.0-40.0) % Monocytes % (Manual) 6 (0.0-15.0) % Eosinophils % (Manual) 6 (0.0-7.0) % Nucleated RBC % 0.0 /100WBC Absolute Seg Neuts 11.5 Band Neutrophils # 0.7 Lymphocytes # (Manual) 0.7 Monocytes # (Manual) 0.9 Eosinophils # (Manual) 0.9 Nucleated RBCs # 0 K/uL Sodium 141 (136-146) mmol/L Potassium 3.7 (3.5-5.1) mmol/L Chloride 111 H (98-110) mmol/L Carbon Dioxide 24 (21-31) mmol/L BUN 6 (6.0-23.0) mg/dL Creatinine 1.0 (0.6-1.5) mg/dL Est Cr Clr Drug Dosing 119.63 mL/min Estimated GFR (MDRD) > 60.0 ml/min Glucose 173 H (60-110) mg/dL Calcium 8.1 L (8.8-10.8) mg/dL Vancomycin Trough 11.3 (5-15) ug/mL Result Diagrams: 12/01/16 04:42 12/01/16 04:42 Consult PN Assessment/Plan Procedures: Procedures ASSAY OF LACTIC ACID (11/27/16) COMPLETE CBC W/AUTO DIFF WBC (11/27/16) COMPREHEN METABOLIC PANEL (11/27/16) EMERGENCY DEPT VISIT (11/27/16) EXTREMITY STUDY (11/27/16) HYDRATE IV INFUSION ADD-ON (11/27/16) IMMUNIZATION ADMIN (11/27/16) ROUTINE VENIPUNCTURE (11/27/16) TDAP VACCINE 7 YRS/> IM (11/27/16) THER/PROPH/DIAG IV INF INIT (11/27/16) X-RAY EXAM OF LOWER LEG (11/27/16) (1) Cellulitis SNOMED Code(s): 584740062 Code(s): L03.90 - CELLULITIS, UNSPECIFIED Current Visit: Yes Qualifiers: Site of cellulitis: extremity Site of cellulitis of extremity: lower extremity Laterality: right Qualified Code(s): L03.115 - Cellulitis of right lower limb Problem List Initiated/Reviewed/Updated: Yes Plan: Would keep right leg elevated as much as possible. Consider Doppler to r/o DVT. Continue parenteral antibiotics. Agree with DVT prophylaxis. If leg remains swollen would even consider US/CT scan of leg to look for occult abscess.
[2016-12-02] MEDS: Piperacillin/Tazobactam 3.375 GM in Sodium Chloride 0.9% 50 ML IV SCH ×5 (00:21→23:32)
[2016-12-02] MEDS: Vancomycin 1.5 GM in Sodium Chloride 0.9% 500 ML IV SCH ×3 (01:10→16:53)
[2016-12-02 05:50] LABS: CHLORIDE,CL 107 mmol/L (98-110); SODIUM,NA 141 mmol/L (136-146)
[2016-12-02] MEDS: Pantoprazole 40 MG in Sodium Chloride 0.9% 10 ML IVPUSH SCH (09:13)
[2016-12-02] MEDS: Enoxaparin 40 MG/0.4 ML Syringe SUBCUT SCH (09:13)
--- NOTE | 2016-12-02 09:38 | PCM.PN ---
- General Info Date of Service: 12/02/16 Admission Dx/Problem (Free Text): Cellulitis Subjective Update: Reports feeling better, pain continues to improve. Using very little pain medications only Tylenol. Reports getting up initially is the worst pain 5/10 then it slowly improves. No chest pain or SOB. No palpitations. No joint pain. No fevers. Functional Status: Reports: Pain Controlled, Tolerating Diet, Ambulating, Urinating - Review of Systems General: Reports: No Symptoms. Denies: Fever, Fatigue, Malaise Pulmonary: Reports: No Symptoms. Denies: Shortness of Breath Cardiovascular: Reports: No Symptoms. Denies: Chest Pain Gastrointestinal: Reports: Diarrhea (intermittent, more formed now.). Denies: Abdominal Pain, Nausea, Vomiting Genitourinary: Reports: No Symptoms. Denies: Dysuria, Frequency, Burning Musculoskeletal: Reports: No Symptoms Skin: Reports: Other (Redness improving as well as edema) Neurological: Reports: No Symptoms Psychiatric: Reports: No Symptoms - Patient Data Vitals - Most Recent: Last Vital Signs Temp 98.6 F 12/02/16 08:00 Pulse 90 12/02/16 08:00 Resp 20 12/02/16 08:00 BP 153/99 H 12/02/16 08:00 Pulse Ox 95 12/02/16 08:00 Weight - Most Recent: 100.9 kg I&O - Last 24 Hours: Intake & Output 12/01/16 12/02/16 12/02/16 22:59 06:59 14:59 Intake Total 1870 740 Output Total 1500 1050 Balance 370 -310 Lab Results Last 24 Hours: Laboratory Results - last 24 hr 12/01/16 12/02/16 12/02/16 Range/Units 09:24 05:00 05:00 WBC 12.07 H (4.0-11.0) K/uL RBC 4.35 L (4.50-5.90) M/uL Hgb 12.3 L (13.0-17.0) g/dL Hct 36.9 L (38.0-50.0) % MCV 84.8 (80.0-98.0) fL MCH 28.3 (27.0-32.0) pg MCHC 33.3 (31.0-37.0) g/dL RDW Std Deviation 41.9 (28.0-62.0) fl RDW Coeff of Caden 14 (11.0-15.0) % Plt Count 279 (150-400) K/uL MPV 10.80 (7.40-12.00) fL Add Manual Diff YES Neutrophils % (Manual) 67 (48.0-80.0) % Band Neutrophils % 7 % Lymphocytes % (Manual) 16 (16.0-40.0) % Monocytes % (Manual) 5 (0.0-15.0) % Eosinophils % (Manual) 5 (0.0-7.0) % Nucleated RBC % 0.0 /100WBC Absolute Seg Neuts 8.1 Band Neutrophils # 0.8 Lymphocytes # (Manual) 1.9 Monocytes # (Manual) 0.6 Eosinophils # (Manual) 0.6 Nucleated RBCs # 0 K/uL Sodium 141 (136-146) mmol/L Potassium 3.8 (3.5-5.1) mmol/L Chloride 107 (98-110) mmol/L Carbon Dioxide 27 (21-31) mmol/L BUN 7 (6.0-23.0) mg/dL Creatinine 0.9 (0.6-1.5) mg/dL Est Cr Clr Drug Dosing 132.93 mL/min Estimated GFR (MDRD) > 60.0 ml/min Glucose 115 H (60-110) mg/dL Calcium 8.7 L (8.8-10.8) mg/dL Vancomycin Trough 11.3 (5-15) ug/mL Med Orders - Current: Current Medications Acetaminophen (Tylenol) 650 mg PO Q4H PRN PRN Reason: Pain (Mild 1-3)/fever Last Admin: 12/01/16 09:05 Dose: 650 mg Enoxaparin Sodium (Lovenox) 40 mg SUBCUT DAILY [facility] Last Admin: 12/02/16 09:13 Dose: 40 mg Piperacillin Sod/Tazobactam (Sod 3.375 gm/ Sodium Chloride) 50 mls @ 100 mls/ hr IV Q6H [facility] Last Admin: 12/02/16 06:16 Dose: 100 mls/hr Vancomycin HCl 1.5 gm/ Sodium (Chloride) 500 mls @ 333.333 mls/hr IV Q8H [facility] Last Admin: 12/02/16 01:10 Dose: 333.333 mls/hr Pantoprazole Sodium 40 mg/ (Sodium Chloride) 10 mls @ 300 mls/hr IVPUSH Q24H [facility] Last Admin: 12/02/16 09:13 Dose: 300 mls/hr Morphine Sulfate (Morphine) 2 mg IVPUSH Q2H PRN PRN Reason: Pain (severe 7-10) Ondansetron HCl (Zofran) 4 mg IVPUSH Q4H PRN PRN Reason: Nausea Last Admin: 11/30/16 11:53 Dose: 4 mg Oxycodone HCl (Oxycodone) 5 mg PO Q4H PRN PRN Reason: Pain (moderate 4-6) Vancomycin HCl (Pharmacy To Dose - Vancomycin) 1 dose .XX ASDIRECTED [facility] Discontinued Medications Ceftriaxone Sodium/Dextrose 1 (gm/ Premix) 50 mls @ 100 mls/hr IV ONETIME ONE Stop: 11/29/16 23:00 Last Admin: 11/29/16 22:50 Dose: 100 mls/hr Sodium Chloride (Normal Saline) 1,000 mls @ 125 mls/hr IV ASDIRECTED [facility] Last Admin: 12/01/16 08:43 Dose: 125 mls/hr - Exam General: Alert, Oriented, Cooperative, No Acute Distress Neck: Supple Lungs: Clear to Auscultation, Normal Respiratory Effort Cardiovascular: Regular Rate, Regular Rhythm GI/Abdominal Exam: Normal Bowel Sounds, Soft, Non-Tender, No Organomegaly, No Distention, No Abnormal Bruit, No Mass, Pelvis Stable Extremities: Normal Range of Motion, Pedal Edema (R leg, improving +1 non- pitting) Wound/Incisions: Drainage (serous fluid from blisters.), Erythema Improving ( Much improved from yesterday, edema improving with continued elevation. Blisters remain intact, some starting to leak. Erythema to R medial thigh nearly gone. ) Neurological: No New Focal Deficit Psy/Mental Status: Alert, Normal Affect, Normal Mood - Problem List & Annotations (1) Cellulitis SNOMED Code(s): 319478211 Code(s): L03.90 - CELLULITIS, UNSPECIFIED Status: Acute Current Visit: Yes Qualifiers: Site of cellulitis: extremity Site of cellulitis of extremity: lower extremity Laterality: right Qualified Code(s): L03.115 - Cellulitis of right lower limb - Problem List Review Problem List Initiated/Reviewed/Updated: Yes - My Orders Last 24 Hours: My Active Orders 12/01/16 09:57 Notify Provider Consults [RC] ASDIRECTED Consult to Physician [CONS] Routine 12/01/16 10:00 Pantoprazole [ProTONIX IV] 40 mg Sodium Chloride 0.9% [Normal Saline] 10 ml IVPUSH Q24H 12/01/16 18:05 Elevate Extremity [RC] BID - Plan Plan:: 31 yo male admitted for right leg cellulitis. 1. Cellulitis: Improving. Continue IV Vancomycin and Zosyn, leukocytosis improving slowly, 12,000. BC negative x 2 day. Encouraged to keep leg elevated and not to disturb blisters. Afebrile. Consulted general surgery, Dr. Diaz, I appreciate his help with this case. VTE prophylaxis: Lovenox. Dispo: Possible DC in am if leukocytosis resolves and continues to improve.
[2016-12-03] MEDS: Vancomycin 1.5 GM in Sodium Chloride 0.9% 500 ML IV SCH ×2 (00:35→10:56)
[2016-12-03] MEDS: Piperacillin/Tazobactam 3.375 GM in Sodium Chloride 0.9% 50 ML IV SCH ×2 (05:38→15:25)
[2016-12-03 05:51] LABS: CHLORIDE,CL 107 mmol/L (98-110); SODIUM,NA 141 mmol/L (136-146)
[2016-12-03] MEDS ORDERED: Pantoprazole 40 MG Tab.CR PO SCH (07:30)
[2016-12-03] MEDS: Enoxaparin 40 MG/0.4 ML Syringe SUBCUT SCH (10:55)
[2016-12-03 12:40] VITALS: BP 146/96
[2016-12-03] MEDS ORDERED: Clindamycin HCl 150 MG Cap PO SCH (13:00)
--- NOTE | 2016-12-03 13:21 | PCM.DCSUM1 ---
Discharge Summary - Hospital Course Free Text/Narrative:: The patient was admitted secondary to severe cellulitis of unknown origin right lower leg. - Discharge Data Discharge Date: 12/03/16 Discharge Disposition: Home, Self-Care 01 Condition: Good - Discharge Diagnosis/Problem(s) (1) Cellulitis SNOMED Code(s): 631466834 ICD Code: L03.90 - CELLULITIS, UNSPECIFIED Status: Acute Priority: High Current Visit: Yes Qualifiers: Site of cellulitis: extremity Site of cellulitis of extremity: lower extremity Laterality: right Qualified Code(s): L03.115 - Cellulitis of right lower limb - Patient Summary/Data Consults: Consultations 12/01/16 09:57 Consult to Physician [CONS] Routine Hospital Course: The patient is a 31-year-old gentleman who is admitted for right leg cellulitis. The patient had improved significantly with the use of IV vancomycin and Zosyn. The patient's cyst is also improved. He had been keeping his leg elevated and he is also been evaluated by surgeon, Dr. Diaz, if needed for concern of necrotizing fasciitis. This appeared not to be the case. The patient says that he has a primary care physician in [place] and he plans on seeing this physician soon. The patient has denied any fever or chills. The patient's white blood cell count is 11,000. His hemoglobin is 12.5 g/dL. The patient also has been tolerating his diet and he says he feels well enough to go home. The patient will be discharged home with clindamycin 450 mg by mouth every 6 hours along with instructions to follow-up with wound care prior to returning to [place]. The patient has not been given pain medication as his pain has been well controlled. He's been recommended to continue with his diet as tolerated and activity as tolerated. He's also been instructed if he has worsening of his symptoms to return to the emergency room. - Patient Instructions Diet: Heart Healthy Diet Activity: As Tolerated Wound/Incision Care: Change Dressing Daily - Discharge Plan Prescriptions/Med Rec: Clindamycin HCl [Cleocin] 450 mg PO Q6H #40 cap Pantoprazole [ProTONIX] 40 mg PO ACBREAKFAST #30 tab.cr Home Medications: Home Meds Clindamycin HCl [Cleocin] 450 mg PO Q6H #40 cap 12/03/16 [Rx] Pantoprazole [ProTONIX] 40 mg PO ACBREAKFAST #30 tab.cr 12/03/16 [Rx] Patient Handouts: Clindamycin capsules, Cellulitis, Adult, [id number], Pantoprazole tablets - Discharge Summary/Plan Comment DC Time >30 min.: Yes - General Info Date of Service: 12/03/16 Admission Dx/Problem (Free Text: Cellulitis right lower extremity with bullae formation Subjective Update: Reports feeling better, pain continues to improve. Using very little pain medications only Tylenol. Reports getting up initially is the worst pain 5/10 then it slowly improves. No chest pain or SOB. No palpitations. No joint pain. No fevers. Functional Status: Reports: Pain Controlled, Tolerating Diet - Review of Systems General: Reports: No Symptoms HEENT: Reports: No Symptoms Pulmonary: Reports: No Symptoms Cardiovascular: Reports: No Symptoms Gastrointestinal: Reports: No Symptoms Genitourinary: Reports: No Symptoms Musculoskeletal: Reports: Leg Pain Skin: Reports: Rash Neurological: Reports: No Symptoms Psychiatric: Reports: No Symptoms - Patient Data Vitals - Most Recent: Last Vital Signs Temp 36.6 C 12/03/16 12:00 Pulse 87 12/03/16 12:00 Resp 16 12/03/16 12:00 BP 146/96 H 12/03/16 12:00 Pulse Ox 95 12/03/16 12:00 Weight - Most Recent: 100.9 kg I&O - Last 24 hours: Intake & Output 12/02/16 12/03/16 12/03/16 22:59 06:59 14:59 Intake Total 1486 1100 Output Total 1845 835 Balance -359 265 Lab Results - Last 24 hrs: Laboratory Results - last 24 hr 12/03/16 12/03/16 12/03/16 Range/Units 05:04 05:04 09:12 WBC 11.48 H (4.0-11.0) K/uL RBC 4.42 L (4.50-5.90) M/uL Hgb 12.5 L (13.0-17.0) g/dL Hct 37.2 L (38.0-50.0) % MCV 84.2 (80.0-98.0) fL MCH 28.3 (27.0-32.0) pg MCHC 33.6 (31.0-37.0) g/dL RDW Std Deviation 40.5 (28.0-62.0) fl RDW Coeff of Caden 13 (11.0-15.0) % Plt Count 309 (150-400) K/uL MPV 10.90 (7.40-12.00) fL Add Manual Diff YES Neutrophils % (Manual) 62 (48.0-80.0) % Band Neutrophils % 4 % Lymphocytes % (Manual) 21 (16.0-40.0) % Monocytes % (Manual) 5 (0.0-15.0) % Eosinophils % (Manual) 8 H (0.0-7.0) % Nucleated RBC % 0.4 /100WBC Absolute Seg Neuts 7.1 Band Neutrophils # 0.5 Lymphocytes # (Manual) 2.4 Monocytes # (Manual) 0.6 Eosinophils # (Manual) 0.9 Nucleated RBCs # 0 K/uL Sodium 141 (136-146) mmol/L Potassium 4.0 (3.5-5.1) mmol/L Chloride 107 (98-110) mmol/L Carbon Dioxide 25 (21-31) mmol/L BUN 11 (6.0-23.0) mg/dL Creatinine 0.9 (0.6-1.5) mg/dL Est Cr Clr Drug Dosing 132.93 mL/min Estimated GFR (MDRD) > 60.0 ml/min Glucose 113 H (60-110) mg/dL Calcium 8.9 (8.8-10.8) mg/dL Vancomycin Trough 13.5 (5-15) ug/mL Med Orders - Current: Current Medications Acetaminophen (Tylenol) 650 mg PO Q4H PRN PRN Reason: Pain (Mild 1-3)/fever Last Admin: 12/01/16 09:05 Dose: 650 mg Clindamycin HCl (Cleocin) 450 mg PO Q6H [facility] Enoxaparin Sodium (Lovenox) 40 mg SUBCUT DAILY [facility] Last Admin: 12/03/16 10:55 Dose: 40 mg Piperacillin Sod/Tazobactam (Sod 3.375 gm/ Sodium Chloride) 50 mls @ 100 mls/ hr IV Q6H [facility] Last Admin: 12/03/16 05:38 Dose: 100 mls/hr Vancomycin HCl 1.5 gm/ Sodium (Chloride) 500 mls @ 333.333 mls/hr IV Q8H [facility] Last Admin: 12/03/16 10:56 Dose: 333.333 mls/hr Morphine Sulfate (Morphine) 2 mg IVPUSH Q2H PRN PRN Reason: Pain (severe 7-10) Ondansetron HCl (Zofran) 4 mg IVPUSH Q4H PRN PRN Reason: Nausea Last Admin: 11/30/16 11:53 Dose: 4 mg Oxycodone HCl (Oxycodone) 5 mg PO Q4H PRN PRN Reason: Pain (moderate 4-6) Pantoprazole Sodium (Protonix) 40 mg PO ACBREAKFAST [facility] Last Admin: 12/03/16 06:34 Dose: 40 mg Vancomycin HCl (Pharmacy To Dose - Vancomycin) 1 dose .XX ASDIRECTED [facility] Discontinued Medications Ceftriaxone Sodium/Dextrose 1 (gm/ Premix) 50 mls @ 100 mls/hr IV ONETIME ONE Stop: 11/29/16 23:00 Last Admin: 11/29/16 22:50 Dose: 100 mls/hr Sodium Chloride (Normal Saline) 1,000 mls @ 125 mls/hr IV ASDIRECTED [facility] Last Admin: 12/01/16 08:43 Dose: 125 mls/hr Pantoprazole Sodium 40 mg/ (Sodium Chloride) 10 mls @ 300 mls/hr IVPUSH Q24H [facility] Last Admin: 12/02/16 09:13 Dose: 300 mls/hr - Exam Quality Assessment: Denies: Supplemental Oxygen General: Reports: Alert, Oriented, Cooperative, No Acute Distress HEENT: Reports: Pupils Equal, Pupils Reactive, EOMI. Denies: Scleral Icterus Neck: Reports: Supple, Trachea Midline Lungs: Reports: Clear to Auscultation, Normal Respiratory Effort Cardiovascular: Reports: Regular Rate, Regular Rhythm GI/Abdominal Exam: Normal Bowel Sounds, Soft, Non-Tender Back Exam: Reports: Normal Inspection Extremities: Pedal Edema (Right lower extremity secondary to cellulitis, improving) Skin: Reports: Warm, Dry Neurological: Reports: No New Focal Deficit Psy/Mental Status: Reports: Alert, Normal Affect *Q Meaningful Use (DIS) - VTE *Q VTE Criteria *Q: - Stroke *Q Stroke Criteria *Q: - AMI *Q AMI Criteria *Q:
== END 2016-12-03 17:00 | disposition home or self-care (01) | DRG 603 ==
LOC: MW.ED 22:13 → MW.MS 11-30
PROVIDERS: ADMIT Internal Medicine; ATTEND Internal Medicine
DX: L03.115 Cellulitis of right lower limb (principal); Z79.899 Other long term (current) drug therapy
CPT/HCPCS: 36415; 73590-26-RT; 73590-RT; 80048; 80053; 80202; 83605; 85025; 87040; 96365; 99282; 99285-25; A9270-GY; C9113; J0696; J1650; J2405; J2543; J3370; J7040; J7050